=== PATIENT | male | born 1940 | race Caucasian/White ===

== ENCOUNTER 2016-11-17 00:51 | Emergency (ER) | payer MEDICARE ==
[~2016-11-17] VITALS: Ht 165.1 cm; Wt 71.0 kg
[2016-11-17 00:56] VITALS: BP 131/70; PULSE 60; RESP 16; TEMP 98; O2SAT 95
[2016-11-17 01:11] VITALS: BP 131/70; PULSE 60; RESP 18; TEMP 98; O2SAT 95
[2016-11-17 01:35] LABS: BLOOD, URINE LARGE (NEG); GLUCOSE,URINE NEG (NEG); KETONE, URINE NEG (NEG); NITRITE,URINE NEG (NEG)
[2016-11-17] MEDS ORDERED: FENO160T PO (01:36)
[2016-11-17] MEDS ORDERED: LISI10TA3 PO (01:36)
[2016-11-17] MEDS ORDERED: OMEP40CA2 PO (01:36)
[2016-11-17] MEDS ORDERED: METF500T PO (01:36)
[2016-11-17] MEDS ORDERED: ZOLO100T PO (01:36)
[2016-11-17] MEDS ORDERED: TAMS0.4C4 PO (01:36)
[2016-11-17 01:41] LABS: COMMENT (UR) CULT NOT INDICATED; CULTURE IF INDICATED CULT NOT INDICATED; RBC, URINE INNUM /hpf (0-3); SQUAMOUS EPITHELIAL CELL URINE 0-5 /hpf (0-5); URINE COLOR RED (YELLW/STRAW); WBC, URINE 0-2 /hpf (0-5)
--- NOTE | 2016-11-17 01:41 | PD ---
HPI Chief Complaint: Complaint Time Seen by Provider: 00:59 Travel History International Travel<30 days: No Contact w/Intl Traveler<30days: No Traveled to known affect area: No History of Present Illness HPI The patient is a 75-year-old male that noted blood and clots in his urine since yesterday. The patient has pain at the end of his urination and he has frequent urination. The frequent urination is about every 15 minutes and this is been going on since yesterday morning. He denies any fever or flank pain. He is not on any anticoagulants. He does have a history of diabetes and hypertension. He lives in [place] and plans to go back there in about 4 days. He denies any pain or fever. He denies any nausea or vomiting. He states he has never had this before. He states his primary care physician told him he had a slightly enlarged prostate. PFSH Past Medical History Cardiovascular Problems: Yes Diabetes: Yes Patient Takes Glucophage: Yes Diminished Hearing: No Hypertension: Yes Immunizations Current: Yes Tetanus Vaccination: < 5 Years Influenza Vaccination: Yes Social History Alcohol Use: Yes Tobacco Use: No Substance Use: No Allergies-Medications (Allergen,Severity, Reaction): Coded Allergies: Niacin (Verified Allergy, Intermediate, Flushing, 11/17/16) Uncoded Allergies: NUTS (Allergy, Severe, Anaphylaxis, 11/17/16) Reported Meds & Prescriptions Reported Meds & Active Scripts Active Reported Omeprazole 40 Mg Cap 40 Mg PO DAILY Zoloft (Sertraline HCl) 100 Mg Tab 100 Mg PO DAILY Tamsulosin (Tamsulosin HCl) 0.4 Mg Cap 0.4 Mg PO HS Lisinopril 10 Mg Tab 10 Mg PO DAILY Fenofibrate 160 Mg Tab 160 Mg PO DAILY Metformin (Metformin HCl) 500 Mg Tab 500 Mg PO DAILY With a meal Review of Systems Except as stated in HPI: all other systems reviewed are Neg Physical Exam Narrative GENERAL: The patient is alert, oriented 3 in no apparent distress. His vital signs are normal. SKIN: Focused skin assessment warm/dry. Specifically, no ecchymoses or bruising on the skin is present. HEAD: Atraumatic. Normocephalic. EYES: Pupils equal and round. No scleral icterus. No injection or drainage. ENT: No nasal bleeding or discharge. Mucous membranes pink and moist. NECK: Trachea midline. No JVD. CARDIOVASCULAR: Regular rate and rhythm. No murmur appreciated. RESPIRATORY: No accessory muscle use. Clear to auscultation. Breath sounds equal bilaterally. GASTROINTESTINAL: Abdomen soft, non-tender, nondistended. Hepatic and splenic margins not palpable. No guarding or rebound is present. MUSCULOSKELETAL: No obvious deformities. No clubbing. No cyanosis. No edema. NEUROLOGICAL: Awake and alert. No obvious cranial nerve deficits. Motor grossly within normal limits. Normal speech. PSYCHIATRIC: Appropriate mood and affect; insight and judgment normal. Data Data Last Documented VS Vital Signs Date Time Temp Pulse Resp B/P Pulse Ox O2 Delivery O2 Flow Rate FiO2 11/17/16 01:14 60 18 11/17/16 01:11 98.0 131/70 95 11/17/16 00:56 Room Air Orders Complete Blood Count With Diff (11/17/16 00:59) Basic Metabolic Panel (Bmp) (11/17/16 00:59) Urinalysis - C+S If Indicated (11/17/16 00:59) Urine Culture (11/17/16 01:58) Prothrombin Time / Inr (Pt) (11/17/16 02:05) Act Partial Throm Time (Ptt) (11/17/16 02:05) Labs Laboratory Tests Test 11/17/16 01:25 White Blood Count 7.7 TH/MM3 Red Blood Count 4.74 MIL/MM3 Hemoglobin 14.6 GM/DL Hematocrit 43.8 % Mean Corpuscular Volume 92.3 FL Mean Corpuscular Hemoglobin 30.9 PG Mean Corpuscular Hemoglobin 33.4 % Concent Red Cell Distribution Width 12.5 % Platelet Count 249 TH/MM3 Mean Platelet Volume 9.4 FL Neutrophils (%) (Auto) 56.2 % Lymphocytes (%) (Auto) 27.1 % Monocytes (%) (Auto) 10.8 % Eosinophils (%) (Auto) 2.8 % Basophils (%) (Auto) 3.1 % Neutrophils # (Auto) 4.4 TH/MM3 Lymphocytes # (Auto) 2.1 TH/MM3 Monocytes # (Auto) 0.8 TH/MM3 Eosinophils # (Auto) 0.2 TH/MM3 Basophils # (Auto) 0.2 TH/MM3 CBC Comment DIFF FINAL Differential Comment Urine Color RED Urine Turbidity CLOUDY Urine pH 7.0 Urine Specific [place] 1.018 Urine Protein 30 mg/dL Urine Glucose (UA) NEG mg/dL Urine Ketones NEG mg/dL Urine Occult Blood LARGE Urine Nitrite NEG Urine Bilirubin NEG Urine Leukocyte Esterase NEG Urine RBC INNUM /hpf Urine WBC 0-2 /hpf Urine Squamous Epithelial 0-5 /hpf Cells Urine Bacteria NONE /hpf Microscopic Urinalysis Comment CULT NOT INDICATED Sodium Level 144 MEQ/L Potassium Level 4.3 MEQ/L Chloride Level 106 MEQ/L Carbon Dioxide Level 29.8 MEQ/L Anion Gap 8 MEQ/L Blood Urea Nitrogen 25 MG/DL Creatinine 1.30 MG/DL Estimat Glomerular Filtration 54 ML/MIN Rate Random Glucose 117 MG/DL Calcium Level 9.3 MG/DL [facility] Medical Decision Making Medical Screen Exam Complete: Yes Emergency Medical Condition: Yes Medical Record Reviewed: Yes Interpretation(s) The urine shows a specific gravity 1.018 with 30 protein and large occult blood and cloudy turbidity, red in color with innumerable red cells but only 0-2 white cells and culture is not indicated. The CBC is normal. The hemoglobin is 14.6. The basic metabolic profile shows a BUN of 25 and GFR 54 but is otherwise unremarkable. Differential Diagnosis Blood in urine from: Bladder tumors, renal tumors, urinary tract infection, coagulopathy, thrombocytopenia. Also consider anemia Narrative Course The patient has no history of anemia or thrombocytopenia. There does not appear to be a urinary tract infection evidenced by the urine results. Nevertheless, because the patient does have frequency of urination we will do a urine culture. The patient does not appear to have lost a significant amount of blood in the urine. Impression: Hematuria etiology undetermined Plan: The patient will need to contact a urologist when he gets back to [place] in a few days. He can call one from here to set up that appointment. Diagnosis Primary Impression: Hematuria, gross Additional Instructions: We will try Cipro for 7 days, this antibiotic is taken one tablet twice daily. It is a good idea to call from [place] to set up a urology appointment in [place]. Med/Other Pt SpecificInfo: Prescription(s) given Scripts Ciprofloxacin (Cipro)500 Mg Nyy124 Mg PO BID 7 Days Ref 0 Prov:Dinesh Norman MD 11/17/16 Disposition: 01 DISCHARGE HOME Dinesh Norman MD November 17, 2016 01:41
[2016-11-17 01:45] LABS: AUTOMATED NEUTROPHIL # 4.4 TH/MM3 (1.8-7.7); BASOPHIL # 0.2 TH/MM3 (0-0.2); BASOPHIL % 3.1 % (0.0-2.0); EOSINOPHIL # 0.2 TH/MM3 (0-0.4); EOSINOPHIL % 2.8 % (0.0-4.0); HEMATOCRIT 43.8 % (39.0-51.0); HEMO FLAGS DIFF FINAL; LYMPH % 27.1 % (9.0-44.0); LYMPHOCYTE # 2.1 TH/MM3 (1.0-4.8); MEAN CELL VOLUME 92.3 FL (80.0-100.0); MEAN CORPUSCULAR HEMOGLOBIN 30.9 PG (27.0-34.0); MEAN CORPUSCULAR HGB CONC 33.4 % (32.0-36.0); MONO % 10.8 % (0.0-8.0); NEUT % 56.2 % (16.0-70.0); PLATELET COUNT 249 TH/MM3 (150-450); POTASSIUM 4.3 MEQ/L (3.5-5.1); RED BLOOD COUNT 4.74 MIL/MM3 (4.50-5.90); RED CELL DISTRIBUTION WIDTH 12.5 % (11.6-17.2); WHITE BLOOD COUNT 7.7 TH/MM3 (4.0-11.0)
[2016-11-17 01:48] LABS: BICARBONATE 29.8 MEQ/L (21.0-32.0)
[2016-11-17] MEDS ORDERED: CIPR-9 PO (02:14)
[2016-11-17 02:32] VITALS: BP 129/69
[2016-11-17 02:40] LABS: APTT (PATIENT) 24.9 SEC (24.3-30.1); PROTHROMBIN TIME - PATIENT 11.3 SEC (9.8-11.6)
== END 2016-11-17 02:33 | disposition home or self-care (01) ==
LOC: PHED 00:51
DX: R31.0 Gross hematuria (principal); R82.99 Other abnormal findings in urine; E11.9 Type 2 diabetes mellitus without complications; Z79.84 Long term (current) use of oral hypoglycemic drugs; I10 Essential (primary) hypertension; Z79.899 Other long term (current) drug therapy
CPT/HCPCS: 80048; 81001; 85025; 85610; 85730; 87086; 99283